=== PATIENT | female | born 1940 | race Caucasian/White ===

== ENCOUNTER 2021-05-19 09:53 | Inpatient (IN) ==
[2021-05-19 10:41] LABS: Basophils # 0.1 K/mcL (0.0-0.2); Basophils % 0.8 %; Eosinophils # 0.4 K/mcL (0.0-0.6); Hematocrit 38.2 % (35.3-44.9); Hemoglobin 12.9 g/dL (11.5-15.4); Immature Granulocytes % 0.2 % (0-4); Lymphocytes # 1.5 K/mcL (0.6-4.6); Lymphocytes % 17.3 %; Mean Corpuscular HGB Conc 33.8 g/dL (31.6-35.5); Mean Corpuscular Hemoglobin 31.2 pg (28.0-33.3); Mean Corpuscular Volume 92.3 fL (83.0-100.0); Mean Platelet Volume 10.4 fL (9.4-12.4); Monocytes # 0.4 K/mcL (0.0-1.3); Monocytes % 5.2 %; Neutrophils # 6.1 K/mcL (1.6-8.9); Platelet Count 252 K/mcL (140-400); Red Blood Count 4.14 M/mcL (3.82-4.97); Segmented Neutrophils % 71.5 %; White Blood Count 8.5 K/mcL (4.3-11.1)
[2021-05-19 11:11] LABS: Alanine Aminotransferase 11 Units/L (7-52); Albumin 3.8 g/dL (3.5-5.7); Albumin/Globulin Ratio 1.5 (1.1-2.2); Alkaline Phosphatase 70 Units/L (34-104); Aspartate Amino Transferase 20 Units/L (13-39); BUN/Creatinine Ratio 16 (6-26); Bilirubin,Direct 0.1 mg/dL (0.0-0.2); Bilirubin,Indirect 0.5 mg/dL (0.0-1.0); Bilirubin,Total 0.6 mg/dL (0.3-1.0); Blood Urea Nitrogen 17 mg/dL (8-23); Calcium 8.8 mg/dL (8.6-10.3); Carbon Dioxide 23 mEq/L (23-29); Chloride 108 mEq/L (98-107); Globulin 2.5 g/dL (2.4-3.5); Glucose 115 mg/dL (70-105); Osmolality,Calculated 290 (280-300); Potassium 3.5 mEq/L (3.5-5.1); Sodium 139 mEq/L (136-145); Total Protein 6.3 g/dL (6.4-8.9); eGFR For African Americans > 60 (> 60); eGFR For Non-African Americans 50 (> 60)
[2021-05-19] MEDS ORDERED: *HR* Heparin 5,000 UNIT/ML VIAL IVP PRN ×2 (11:13)
[2021-05-19] MEDS ORDERED: *HR* Heparin 5,000 UNIT/ML VIAL IVP ONE (11:13)
[2021-05-19] MEDS: Heparin 25,000UNIT/250ML 1/2NS 25,000 UNIT/250 ML IV.SOLN IVC SCH (12:24)
[2021-05-19 12:45] LABS: Heparin anti-factor XA UFH 0.04 IU/mL (0.30-0.70)
[2021-05-19 12:46] LABS: Prothrombin Time 11.3 Seconds (9.4-12.1)
[2021-05-19] MEDS ORDERED: Acetaminophen 325 MG TABLET PO PRN (13:10)
[2021-05-19] MEDS ORDERED: Naloxone 0.4 MG/ML INJ IVP PRN (13:10)
[2021-05-19] MEDS ORDERED: Ondansetron 4 MG/2 ML VIAL IVP PRN (13:10)
[2021-05-19] MEDS ORDERED: Aspirin 81 MG TAB.CHEW PO ONE (13:11)
[2021-05-19] MEDS ORDERED: Perflutren Lipid Microsphere 1.3 ML in 0.9 % Sodium Chloride 8.7 ML IVP PRN (13:19)
[2021-05-19] MEDS ORDERED: Nitroglycerin 0.4 MG TAB.SUBL SL PRN (13:20)
[2021-05-19] MEDS: lisinopriL 10 MG TABLET PO SCH (15:46)
[2021-05-20 01:01] LABS: Basophils # 0.1 K/mcL (0.0-0.2); Basophils % 1.1 %; Eosinophils # 0.5 K/mcL (0.0-0.6); Eosinophils % 6.7 %; Hematocrit 37.5 % (35.3-44.9); Hemoglobin 12.8 g/dL (11.5-15.4); Immature Granulocytes % 0.2 % (0-4); Lymphocytes # 2.6 K/mcL (0.6-4.6); Mean Corpuscular HGB Conc 34.1 g/dL (31.6-35.5); Mean Corpuscular Hemoglobin 31.7 pg (28.0-33.3); Mean Corpuscular Volume 92.8 fL (83.0-100.0); Mean Platelet Volume 10.9 fL (9.4-12.4); Monocytes # 0.6 K/mcL (0.0-1.3); Monocytes % 7.2 %; Neutrophils # 4.2 K/mcL (1.6-8.9); Platelet Count 250 K/mcL (140-400); Red Blood Count 4.04 M/mcL (3.82-4.97); Red Cell Distribution Width 13.2 % (11.5-14.5); Segmented Neutrophils % 52.8 %; White Blood Count 8.1 K/mcL (4.3-11.1)
[2021-05-20 01:10] LABS: Estimated Average Glucose 120 mg/dl; Hemoglobin A1C 5.8 %
[2021-05-20 01:17] LABS: BUN/Creatinine Ratio 17 (6-26); Blood Urea Nitrogen 18 mg/dL (8-23); Calcium 8.6 mg/dL (8.6-10.3); Carbon Dioxide 23 mEq/L (23-29); Chloride 108 mEq/L (98-107); Chol/HDL Ratio 3.9 (0-4.9); Cholesterol 199 mg/dL (< 200); Glucose 111 mg/dL (70-105); HDL Cholesterol 51 mg/dL (40-59); LDL Cholesterol,Calculated 129 mg/dL (< 100); Osmolality,Calculated 291 (280-300); Potassium 3.4 mEq/L (3.5-5.1); Sodium 139 mEq/L (136-145); Triglycerides 95 mg/dL (< 150); eGFR For African Americans > 60 (> 60); eGFR For Non-African Americans 51 (> 60)
[2021-05-20 01:30] LABS: Thyroid Stimulating Hormone 2.937 mcIU/mL (0.340-5.600)
[2021-05-20] MEDS: Aspirin 81 MG TAB.CHEW PO SCH (09:30)
[2021-05-20] MEDS: lisinopriL 10 MG TABLET PO SCH (09:30)
[2021-05-20] MEDS ORDERED: Potassium Chloride Elixir 20 MEQ/15 ML UDC PO ONE (09:59)
[2021-05-21 01:15] LABS: Basophils # 0.1 K/mcL (0.0-0.2); Basophils % 0.8 %; Eosinophils # 0.5 K/mcL (0.0-0.6); Eosinophils % 6.3 %; Hematocrit 40.2 % (35.3-44.9); Hemoglobin 13.6 g/dL (11.5-15.4); Immature Granulocytes % 0.3 % (0-4); Lymphocytes # 2.4 K/mcL (0.6-4.6); Lymphocytes % 32.8 %; Mean Corpuscular HGB Conc 33.8 g/dL (31.6-35.5); Mean Corpuscular Hemoglobin 31.3 pg (28.0-33.3); Mean Corpuscular Volume 92.6 fL (83.0-100.0); Mean Platelet Volume 11.3 fL (9.4-12.4); Monocytes # 0.7 K/mcL (0.0-1.3); Monocytes % 8.8 %; Neutrophils # 3.8 K/mcL (1.6-8.9); Platelet Count 266 K/mcL (140-400); Red Blood Count 4.34 M/mcL (3.82-4.97); Red Cell Distribution Width 13.2 % (11.5-14.5); White Blood Count 7.4 K/mcL (4.3-11.1)
[2021-05-21 01:44] LABS: BUN/Creatinine Ratio 19 (6-26); Blood Urea Nitrogen 19 mg/dL (8-23); Carbon Dioxide 23 mEq/L (23-29); Chloride 109 mEq/L (98-107); Glucose 100 mg/dL (70-105); Osmolality,Calculated 294 (280-300); Potassium 3.7 mEq/L (3.5-5.1); Sodium 141 mEq/L (136-145); eGFR For African Americans > 60 (> 60); eGFR For Non-African Americans 54 (> 60)
[2021-05-21] MEDS: Heparin 25,000UNIT/250ML 1/2NS 25,000 UNIT/250 ML IV.SOLN IVC SCH ×2 (02:45→11:37)
[2021-05-21] MEDS: lisinopriL 20 MG TABLET PO SCH (08:54)
[2021-05-21] MEDS: Aspirin 81 MG TAB.CHEW PO SCH (08:54)
[2021-05-21] MEDS ORDERED: Heparin 1,000 UNITS/500 mL 500 ML ONE (11:52)
[2021-05-21] MEDS ORDERED: Nitroglycerin 1,000 MCG/5 ML VIAL IV ONE (11:52)
[2021-05-21] MEDS ORDERED: 0.9 % Sodium Chloride 1,000 ML ONE ×2 (11:52→11:53)
[2021-05-21] MEDS ORDERED: ISOVUE-370 200 ML INFUS..BTL ONE (11:52)
[2021-05-21] MEDS ORDERED: *HR* Heparin 10,000 UNIT/10 ML VIAL ONE (11:52)
[2021-05-21] MEDS ORDERED: *HR* Midazolam HCl 2 MG/2 ML VIAL ONE (12:59)
[2021-05-21] MEDS ORDERED: *HR* FentaNYL (PF) 100 MCG/2 ML VIAL ONE (12:59)
[2021-05-21] MEDS ORDERED: Tirofiban 12.5 MG/250ML 12.5 MG/250 ML BAG ONE (13:32)
[2021-05-21] MEDS ORDERED: Tirofiban 12.5 MG/250ML 12.5 MG/250 ML BAG IVC SCH (15:30)
[2021-05-22 07:41] LABS: Basophils # 0.1 K/mcL (0.0-0.2); Basophils % 0.9 %; Eosinophils # 0.4 K/mcL (0.0-0.6); Eosinophils % 4.7 %; Hematocrit 40.7 % (35.3-44.9); Hemoglobin 13.3 g/dL (11.5-15.4); Immature Granulocytes % 0.3 % (0-4); Lymphocytes % 26.3 %; Mean Corpuscular HGB Conc 32.7 g/dL (31.6-35.5); Mean Corpuscular Hemoglobin 30.3 pg (28.0-33.3); Mean Corpuscular Volume 92.7 fL (83.0-100.0); Mean Platelet Volume 10.7 fL (9.4-12.4); Monocytes # 0.6 K/mcL (0.0-1.3); Monocytes % 8.4 %; Neutrophils # 4.4 K/mcL (1.6-8.9); Platelet Count 267 K/mcL (140-400); Red Blood Count 4.39 M/mcL (3.82-4.97); Red Cell Distribution Width 13.4 % (11.5-14.5); Segmented Neutrophils % 59.4 %; White Blood Count 7.5 K/mcL (4.3-11.1)
[2021-05-22 08:05] LABS: BUN/Creatinine Ratio 17 (6-26); Blood Urea Nitrogen 15 mg/dL (8-23); Carbon Dioxide 22 mEq/L (23-29); Chloride 116 mEq/L (98-107); Glucose 96 mg/dL (70-105); Osmolality,Calculated 305 (280-300); Potassium 3.9 mEq/L (3.5-5.1); Sodium 147 mEq/L (136-145); eGFR For African Americans > 60 (> 60); eGFR For Non-African Americans > 60 (> 60)
[2021-05-22] MEDS: Aspirin 81 MG TAB.CHEW PO SCH (08:39)
[2021-05-22] MEDS: lisinopriL 20 MG TABLET PO SCH (08:39)
[2021-05-22] MEDS ORDERED: Metoprolol XL (24 HR) Succ 50 MG TAB.ER.24H PO SCH (09:00)
[2021-05-22 10:38] VITALS: BP 129/78; PULSE 76; TEMP 98.5; O2SAT 97
== END 2021-05-22 12:49 | disposition home or self-care (01) | DRG 247 ==
LOC: EMEROOARM 09:53 → 2ANU 09:53
PROVIDERS: ADMIT Internal Medicine; ATTEND Internal Medicine

== ENCOUNTER 2022-05-25 18:34 | Inpatient (IN) ==
[2022-05-26] MEDS ORDERED: Ondansetron 4 MG/2 ML VIAL IVP PRN
[2022-05-26] MEDS ORDERED: Naloxone 0.4 MG/ML INJ IVP PRN
[2022-05-26 01:05] LABS: Hematocrit 37.2 % (35.3-44.9); Hemoglobin 12.2 g/dL (11.5-15.4); Mean Corpuscular HGB Conc 32.8 g/dL (31.6-35.5); Mean Corpuscular Hemoglobin 31.2 pg (28.0-33.3); Mean Corpuscular Volume 95.1 fL (83.0-100.0); Mean Platelet Volume 10.6 fL (9.4-12.4); Platelet Count 280 K/mcL (140-400); Red Blood Count 3.91 M/mcL (3.82-4.97); Red Cell Distribution Width 13.5 % (11.5-14.5); White Blood Count 7.1 K/mcL (4.3-11.1)
[2022-05-26 01:14] LABS: INR 1.1; Prothrombin Time 11.8 Seconds (9.4-12.1)
[2022-05-26 01:45] LABS: Albumin 3.6 g/dL (3.5-5.7); Albumin/Globulin Ratio 1.4 (1.1-2.2); Bilirubin,Total 0.6 mg/dL (0.3-1.0); Chol/HDL Ratio 2.5 (0-4.9); Globulin 2.5 g/dL (2.4-3.5); Potassium 3.4 mEq/L (3.5-5.1); Total Protein 6.1 g/dL (6.4-8.9)
[2022-05-26] MEDS ORDERED: Perflutren Lipid Microsphere 1.3 ML in 0.9 % Sodium Chloride 8.7 ML IVP PRN (02:18)
[2022-05-26] MEDS: Aspirin 81 MG TAB.CHEW PO SCH (08:59)
[2022-05-26] MEDS ORDERED: lisinopriL 20 MG TABLET PO SCH (10:00)
[2022-05-26] MEDS: Metoprolol XL (24 HR) Succ 50 MG TAB.ER.24H PO SCH (11:15)
[2022-05-26 12:32] LABS: BUN/Creatinine Ratio 16 (6-26); Blood Urea Nitrogen 15 mg/dL (8-23); Carbon Dioxide 25 mEq/L (23-29); Chloride 110 mEq/L (98-107); Glucose 98 mg/dL (70-105); Osmolality,Calculated 295 (280-300); Potassium 3.7 mEq/L (3.5-5.1); Sodium 142 mEq/L (136-145); eGFR For African Americans > 60 (> 60); eGFR For Non-African Americans 59 (> 60)
[2022-05-26] MEDS: Acetaminophen 325 MG TABLET PO PRN (18:24)
[2022-05-27] MEDS ORDERED: *HR* Labetalol 20 MG/4 ML SYRINGE IVP ONE (03:15)
[2022-05-27 06:24] VITALS: O2SAT 95
[2022-05-27] MEDS ORDERED: Regadenoson 0.4 MG/5 ML SYRINGE IVP ONE (06:40)
[2022-05-27] MEDS: Aspirin 81 MG TAB.CHEW PO SCH (09:37)
[2022-05-27] MEDS: Metoprolol XL (24 HR) Succ 50 MG TAB.ER.24H PO SCH (09:37)
[2022-05-27 10:38] VITALS: BP 147/72; PULSE 98; TEMP 97.4
[2022-05-27] MEDS: Acetaminophen 325 MG TABLET PO PRN (10:54)
== END 2022-05-27 14:45 | disposition home or self-care (01) | DRG 305 ==
LOC: 3BNU → SUATTDRO 23:34
PROVIDERS: ADMIT Family Medicine; ATTEND Registered Nurse